=== PATIENT | male | born 1970 | race Caucasian/White ===

== ENCOUNTER 2017-07-07 21:42 | Emergency (ER) | payer MEDICAID ==
[~2017-07-07 21:42] MED LIST: AMOXICILLIN500 MG PO; CLONIDINE0.1 M1 PO; DEPAKOTE SPRIN125 MG PO; LEVOTHYROXIN0.075 M2 PO; MVI PO; TEG200 PO; [UNRECOGNIZED DRUG - OTHER]
[2017-07-08 00:35] VITALS: BP 152/88
== END 2017-07-08 00:35 | disposition home or self-care (01) ==
LOC: ED 21:42
DX: I10 Essential (primary) hypertension (principal); E03.9 Hypothyroidism, unspecified; G80.9 Cerebral palsy, unspecified; F79 Unspecified intellectual disabilities; G40.909 Epilepsy, unspecified, not intractable, without status epilepticus; Z79.899 Other long term (current) drug therapy

== ENCOUNTER 2019-11-19 11:24 | Emergency (ER) | payer OTHER ==
[~2019-11-19] VITALS: Ht 152.4 cm; Wt 44.5 kg
[2019-11-19 11:37] VITALS: Ht 152.4 cm; Wt 44.5 kg
[2019-11-19 13:06] LABS: PLATELET COUNT 157 x10^3mcL (130-400); RED CELL DISTRIBUTION WIDTH 12.6 % (11.5-14.5)
[2019-11-19 13:07] LABS: CARBON DIOXIDE 30.5 mmol/L (21-32); CHLORIDE SERUM 99 mmol/L (98-107); SODIUM SERUM 139 mmol/L (136-145)
[2019-11-19 13:08] LABS: BILIRUBIN TOTAL 0.3 mg/dL (0.20-1.00); CALCIUM 9.7 mg/dL (8.5-10.1); CREATININE SERUM 0.7 mg/dL (0.7-1.3); GFR1 > 60 mL/min; GLUCOSE SERUM 104 mg/dL (74-106); TOTAL PROTEIN, SERUM 7.5 g/dL (6.4-8.2)
[2019-11-19 13:09] LABS: ALKALINE PHOSPHATASE 57 U/L (46-116); ALT/SGPT 27 U/L (16-63); AST/SGOT 35 U/L (15-37)
[2019-11-19 13:35] LABS: T3 TOTAL 0.52 ng/mL
[2019-11-19 14:08] LABS: BAND NEUTROPHIL 23 % (0-10); BASOPHIL 0 % (0-2); MONOCYTE 14 % (0-7); PLATELET MORPHOLOGY PLATELETS INCREASED; SEGMENTED NEUTROPHILS 55 % (37-75)
[2019-11-19 14:09] LABS: rbc morphology (normal/abnorm) ABNORMAL (NORMAL)
[2019-11-19 15:18] LABS: FREE T4 1.11 ng/dL (0.76-1.46); FREE THYROXINE INDEX 2.2 ug/dL (1.4-4.5); T4(THYROXINE) 7.3 ug/dL (4.7-13.3)
[2019-11-19 15:42] LABS: UA SPECIFIC GRAVITY 1.025 (1.005-1.035); microscopic required? YES; urine erythrocyte TRACE (NEGATIVE)
[2019-11-19 16:02] LABS: AMPHETAMINE QUAL UR NONE DETECTED (See below)
[2019-11-19 17:04] VITALS: BP 109/60
== END 2019-11-19 17:04 | disposition home or self-care (01) ==
LOC: ED 11:24
PROVIDERS: Emergency Medicine
DX: I95.1 Orthostatic hypotension (principal); E03.9 Hypothyroidism, unspecified; Z86.2 Personal history of diseases of the blood and blood-forming organs and certain disorders involving the immune mechanism
CPT/HCPCS: 36415; 84439; Q0092

== ENCOUNTER 2020-01-21 16:01 | Emergency (ER) | payer OTHER, MEDICAID ==
[~2020-01-21] VITALS: Ht 152.4 cm; Wt 41.7 kg
[2020-01-21 16:22] VITALS: Ht 152.4 cm; Wt 41.7 kg
[2020-01-21 18:45] VITALS: BP 184/93
== END 2020-01-21 18:45 | disposition short-term general hospital (02) ==
LOC: ED 16:01
DX: F72 Severe intellectual disabilities (principal); I10 Essential (primary) hypertension; F90.9 Attention-deficit hyperactivity disorder, unspecified type; E03.9 Hypothyroidism, unspecified; G40.909 Epilepsy, unspecified, not intractable, without status epilepticus